=== PATIENT | female | born 1940 | race Caucasian/White ===

== ENCOUNTER 2022-02-07 16:28 | Emergency (ER) | payer BC ==
[2022-02-07 16:54] VITALS: TEMP 98.1; BMI 28.1
[2022-02-07] MEDS ORDERED: ACETAMINOPHEN 1000 MG/100 ML BAG IVPB ONE (18:51)
[2022-02-07] MEDS ORDERED: ACETAMINOPHEN INJECTION 100 ML IVPB ONE (18:58)
[2022-02-07 19:28] LABS: HEMATOCRIT 39.8 % (32.4-45.2); MCH 29.1 pg (25.7-33.7); MCHC 32.7 g/dl (32.0-36.0); MEAN CELL VOLUME 88.9 fl (80-96); MEAN PLT VOLUME 8.1 fl (7.5-11.1); PLATELET COUNT 398 10^3/uL (134-434); RBC 4.48 M/mm3 (3.60-5.2); RDW 14.3 % (11.6-15.6); WHITE BLOOD COUNT 10.2 K/mm3 (4.0-10.0)
[2022-02-07 19:45] LABS: INR 0.95 (0.83-1.09); PROTHROMBIN TIME (PATIENT) 10.9 SEC (9.7-13.0)
[2022-02-07 19:47] LABS: CHLORIDE 104 mmol/L (98-107); SODIUM 137 mmol/L (136-145)
[2022-02-07 19:50] LABS: ALBUMIN 3.8 g/dl (3.4-5.0); BLOOD UREA NITROGEN 13.5 mg/dL (7-18); CALCIUM 9.9 mg/dL (8.5-10.1); CO2 25 mmol/L (21-32); GLUCOSE,RANDOM 120 mg/dL (74-106)
[2022-02-07 19:53] LABS: CREATININE 0.8 mg/dL (0.55-1.3); SGOT/AST 62 U/L (15-37)
[2022-02-07 19:55] LABS: BILIRUBIN,TOTAL 1.4 mg/dL (0.2-1)
[2022-02-07 19:56] LABS: ALK PHOS 83 U/L (45-117)
[2022-02-07 20:19] LABS: ANION GAP 7 MMOL/L (8-16); SGPT/ALT 24 U/L (13-61)
[2022-02-08 00:11] LABS: BLOOD UREA NITROGEN 11.8 mg/dL (7-18); CALCIUM 9.6 mg/dL (8.5-10.1)
[2022-02-08 00:15] LABS: CREATININE 0.6 mg/dL (0.55-1.3)
[2022-02-08 00:37] VITALS: BP 152/86; PULSE 94
== END 2022-02-08 00:38 | disposition home or self-care (01) ==
LOC: JER 16:28
PROC: 3E0333Z Introduction of Anti-inflammatory into Peripheral Vein, Percutaneous Approach (ICD-10-PCS; principal; 2022-02-07)
DX: S09.90XA Unspecified injury of head, initial encounter (principal); W01.0XXA Fall on same level from slipping, tripping and stumbling without subsequent striking against object, initial encounter
CPT/HCPCS: 36415; 70450-TC; 71260-TC; 72125-TC; 72128-TC; 74177-TC; 80048; 80053; 85027; 85610; 99285-25; Q9967

== ENCOUNTER 2022-04-05 14:23 | Emergency (ER) | payer BC ==
[2022-04-05 14:44] VITALS: BP 125/63; PULSE 85; TEMP 97.7; BMI 30.8
[2022-04-05] MEDS ORDERED: FAMOTIDINE 20 MG/50 ML IVPB 20 MG/50 ML MG IVPB ONE ×2 (15:03→15:11)
[2022-04-05] MEDS ORDERED: methylPREDNISolone NA SUCC 125 MG/2 ML VIAL IVPUSH ONE (15:06)
[2022-04-05] MEDS ORDERED: methylPREDNISolone NA SUCC 125 MG/2 ML VIAL ONE (15:11)
[2022-04-05] MEDS ORDERED: SODIUM CHLORIDE 0.9% 500 ML INFUS.BAG IV ONE (18:20)
[2022-04-05] MEDS ORDERED: ONDANSETRON 4 MG/2 ML VIAL IVPUSH ONE (18:20)
[2022-04-05] MEDS ORDERED: ONDANSETRON 4 MG/2 ML VIAL ONE (18:30)
== END 2022-04-05 21:26 | disposition home or self-care (01) ==
LOC: JER 14:23
PROC: 3E033GC Introduction of Other Therapeutic Substance into Peripheral Vein, Percutaneous Approach (ICD-10-PCS; principal; 2022-04-05)
PROC: 3E033GC Introduction of Other Therapeutic Substance into Peripheral Vein, Percutaneous Approach (ICD-10-PCS; 2022-04-05)
PROC: 3E033GC Introduction of Other Therapeutic Substance into Peripheral Vein, Percutaneous Approach (ICD-10-PCS; 2022-04-05)
DX: T78.40XA Allergy, unspecified, initial encounter (principal)
CPT/HCPCS: 93005; 93010; 99284-25

== ENCOUNTER 2024-03-22 10:03 | Day surgery (SDC) | payer BC ==
[2024-03-22] MEDS: SODIUM CHLORIDE 250 ML IV ONE (10:40)
[2024-03-22] MEDS: PEMBROLIZUMAB 200 MG in SODIUM CHLORIDE 100 ML IV ONE (11:35)
[2024-03-22 13:40] VITALS: TEMP 98.3
[2024-03-22 13:46] VITALS: BP 144/68; PULSE 81; RESP 18
== END 2024-03-22 12:55 | disposition home or self-care (01) ==
LOC: JONCCHEMO 10:03 → J7W 10:04 → JONCCHEMO 12:55
PROVIDERS: ATTEND Internal Medicine Hematology & Oncology
DX: Z51.11 Encounter for antineoplastic chemotherapy (principal); C64.2 Malignant neoplasm of left kidney, except renal pelvis; C79.01 Secondary malignant neoplasm of right kidney and renal pelvis
CPT/HCPCS: J9271

== ENCOUNTER 2024-04-12 10:38 | Day surgery (SDC) | payer BC ==
[2024-04-12] MEDS: SODIUM CHLORIDE 250 ML IV ONE (11:44)
[2024-04-12] MEDS: MAGNESIUM OXIDE 400 MG TABLET (FP) PO ONE (11:47)
[2024-04-12] MEDS: LIDOCAINE 4% PATCH TP ONE (11:48)
[2024-04-12] MEDS: PEMBROLIZUMAB 200 MG in SODIUM CHLORIDE 100 ML IV ONE (12:49)
[2024-04-12 15:00] VITALS: RESP 20; TEMP 97.8
[2024-04-12 15:08] VITALS: BP 141/64; PULSE 88
[2024-04-12] MEDS ORDERED: LIDOCAINE PATCH REMOVAL MC SCH (22:00)
== END 2024-04-12 13:55 | disposition home or self-care (01) ==
LOC: JONCCHEMO 10:38 → J7W 10:39 → JONCCHEMO 13:55
PROVIDERS: ATTEND Internal Medicine Hematology & Oncology
DX: Z51.11 Encounter for antineoplastic chemotherapy (principal); C64.2 Malignant neoplasm of left kidney, except renal pelvis; C79.01 Secondary malignant neoplasm of right kidney and renal pelvis
CPT/HCPCS: 96413; J9271

== ENCOUNTER 2024-05-03 10:59 | Day surgery (SDC) | payer BC ==
[2024-05-03] MEDS: SODIUM CHLORIDE 250 ML IV ONE (11:40)
[2024-05-03] MEDS: PEMBROLIZUMAB 200 MG in SODIUM CHLORIDE 100 ML IV ONE (12:07)
[2024-05-03 15:50] VITALS: TEMP 98.2
[2024-05-03 15:54] VITALS: BP 145/83; PULSE 113; RESP 16
== END 2024-05-03 12:50 | disposition home or self-care (01) ==
LOC: JONCCHEMO 10:59 → J7W 11:00 → JONCCHEMO 12:50
PROVIDERS: ATTEND Internal Medicine Hematology & Oncology
DX: Z51.11 Encounter for antineoplastic chemotherapy (principal); C64.2 Malignant neoplasm of left kidney, except renal pelvis; C79.01 Secondary malignant neoplasm of right kidney and renal pelvis
CPT/HCPCS: 96413; J9271

== ENCOUNTER 2024-05-24 10:49 | Day surgery (SDC) | payer BC ==
[2024-05-24] MEDS: SODIUM CHLORIDE 250 ML IV ONE (11:29)
[2024-05-24] MEDS: PEMBROLIZUMAB 200 MG in SODIUM CHLORIDE 100 ML IV ONE (11:43)
[2024-05-24 13:54] LABS: PH,URINE 6.5 (5.0-8.0); URINE APPEARANCE CLEAR; URINE BILIRUBIN NEGATIVE (NEGATIVE); URINE COLOR YELLOW; URINE GLUCOSE (UA) NEGATIVE (NEGATIVE); URINE KETONE NEGATIVE (NEGATIVE); URINE LEUK ESTERASE NEGATIVE (NEGATIVE); URINE NITRITE NEGATIVE (NEGATIVE); URINE PROTEIN TRACE (NEGATIVE); URINE UROBILINOGEN 0.2 mg/dL (0.2-1.0)
[2024-05-24 16:25] VITALS: RESP 20; TEMP 98.6
[2024-05-24 16:33] VITALS: BP 153/73; PULSE 83
== END 2024-05-24 12:45 | disposition home or self-care (01) ==
LOC: JONCCHEMO 10:49 → J7W 10:50 → JONCCHEMO 12:45
PROVIDERS: ATTEND Internal Medicine Hematology & Oncology
DX: Z51.11 Encounter for antineoplastic chemotherapy (principal); C64.2 Malignant neoplasm of left kidney, except renal pelvis; C79.01 Secondary malignant neoplasm of right kidney and renal pelvis
CPT/HCPCS: 81003; 96413; J9271

== ENCOUNTER 2024-06-14 09:37 | Day surgery (SDC) | payer BC ==
[2024-06-14] MEDS: SODIUM CHLORIDE 250 ML IV ONE (10:10)
[2024-06-14] MEDS: MAGNESIUM SULFATE IN WATER 2 GM/50 ML IVPB IVPB ONE (10:25)
[2024-06-14] MEDS: PEMBROLIZUMAB 200 MG in SODIUM CHLORIDE 100 ML IV ONE (11:10)
[2024-06-14 16:06] VITALS: BP 154/84; PULSE 95; RESP 20; TEMP 98.4
== END 2024-06-14 12:05 | disposition home or self-care (01) ==
LOC: JONCCHEMO 09:37 → J7W 09:37 → JONCCHEMO 12:05
PROVIDERS: ATTEND Internal Medicine Hematology & Oncology
DX: Z51.11 Encounter for antineoplastic chemotherapy (principal); C64.2 Malignant neoplasm of left kidney, except renal pelvis; C79.9 Secondary malignant neoplasm of unspecified site
CPT/HCPCS: 96413; J9271

== ENCOUNTER 2024-07-06 11:19 | Day surgery (SDC) | payer BC ==
[2024-07-06] MEDS: SODIUM CHLORIDE 250 ML IV ONE (12:10)
[2024-07-06] MEDS: PEMBROLIZUMAB 200 MG in SODIUM CHLORIDE 100 ML IV ONE (13:01)
[2024-07-06 15:57] VITALS: RESP 20; TEMP 98
[2024-07-06 16:01] VITALS: BP 151/49; PULSE 93
== END 2024-07-06 13:45 | disposition home or self-care (01) ==
LOC: JONCCHEMO 11:19 → J7W 11:20 → JONCCHEMO 13:45
PROVIDERS: ATTEND Internal Medicine Hematology & Oncology
DX: Z51.11 Encounter for antineoplastic chemotherapy (principal); C64.2 Malignant neoplasm of left kidney, except renal pelvis; C79.9 Secondary malignant neoplasm of unspecified site
CPT/HCPCS: 96361; 96413; J9271

== ENCOUNTER 2024-07-27 11:48 | Day surgery (SDC) | payer BC ==
[2024-07-27] MEDS: SODIUM CHLORIDE 250 ML IV ONE (12:07)
[2024-07-27] MEDS: PEMBROLIZUMAB 200 MG in SODIUM CHLORIDE 100 ML IV ONE (13:11)
[2024-07-27 17:07] VITALS: TEMP 98
[2024-07-27 17:39] VITALS: BP 145/69; PULSE 76; RESP 18
== END 2024-07-27 14:00 | disposition home or self-care (01) ==
LOC: JONCCHEMO 11:48 → J7W 11:49 → JONCCHEMO 14:00
PROVIDERS: ATTEND Internal Medicine Hematology & Oncology
PROC: 3E03305 Introduction of Other Antineoplastic into Peripheral Vein, Percutaneous Approach (ICD-10-PCS; principal; 2024-07-27)
PROC: 3E0337Z Introduction of Electrolytic and Water Balance Substance into Peripheral Vein, Percutaneous Approach (ICD-10-PCS; 2024-07-27)
DX: Z51.11 Encounter for antineoplastic chemotherapy (principal); C64.2 Malignant neoplasm of left kidney, except renal pelvis; C79.9 Secondary malignant neoplasm of unspecified site
CPT/HCPCS: 96361; 96413; J9271

== ENCOUNTER 2024-08-17 11:40 | Day surgery (SDC) | payer BC ==
[2024-08-17] MEDS: SODIUM CHLORIDE 250 ML IV ONE (12:53)
[2024-08-17] MEDS: PEMBROLIZUMAB 200 MG in SODIUM CHLORIDE 100 ML IV ONE (13:55)
[2024-08-17 15:04] VITALS: PULSE 75; TEMP 97.7
[2024-08-17 15:05] VITALS: BP 137/63; RESP 16
== END 2024-08-17 14:45 | disposition home or self-care (01) ==
LOC: JONCCHEMO 11:40 → J7W 11:41 → JONCCHEMO 14:45
PROVIDERS: ATTEND Internal Medicine Hematology & Oncology
PROC: 3E03305 Introduction of Other Antineoplastic into Peripheral Vein, Percutaneous Approach (ICD-10-PCS; principal; 2024-08-17)
PROC: 3E0337Z Introduction of Electrolytic and Water Balance Substance into Peripheral Vein, Percutaneous Approach (ICD-10-PCS; 2024-08-17)
DX: Z51.11 Encounter for antineoplastic chemotherapy (principal); C64.2 Malignant neoplasm of left kidney, except renal pelvis
CPT/HCPCS: 96361; 96413; J9271

== ENCOUNTER 2024-09-14 11:16 | Day surgery (SDC) | payer BC ==
[~2024-09-14 11:16] MED LIST: PEMBROLIZUMAB 200 MG in SODIUM CHLORIDE 100 ML IV ONE; SODIUM CHLORIDE 250 ML IV ONE
[2024-09-14] MEDS: SODIUM CHLORIDE 250 ML IV ONE (12:00)
[2024-09-14 12:06] LABS: EPI CELLS 2 /uL (0-25.1); HYALINE CASTS 1 /uL (0-3.1); PH,URINE 5.5 (5.0-8.0); URINE APPEARANCE CLEAR; URINE BACTERIA 771 /uL (0-1359); URINE BILIRUBIN NEGATIVE (NEGATIVE); URINE COLOR YELLOW; URINE GLUCOSE (UA) NEGATIVE (NEGATIVE); URINE KETONE NEGATIVE (NEGATIVE); URINE LEUK ESTERASE TRACE (NEGATIVE); URINE NITRITE NEGATIVE (NEGATIVE); URINE PROTEIN TRACE (NEGATIVE); URINE RBC 14 /uL (0-23.9); URINE UROBILINOGEN 0.2 mg/dL (0.2-1.0); URINE WBC 121 /uL (0-25.8)
[2024-09-14] MEDS: PEMBROLIZUMAB 200 MG in SODIUM CHLORIDE 100 ML IV ONE (13:02)
[2024-09-14 14:30] VITALS: PULSE 76; RESP 20; TEMP 98.4
[2024-09-14 14:38] VITALS: BP 129/59
== END 2024-09-14 14:15 | disposition home or self-care (01) ==
LOC: JONCCHEMO 11:16 → J7W 11:29 → JONCCHEMO 14:15
PROVIDERS: ATTEND Internal Medicine Hematology & Oncology
DX: Z51.11 Encounter for antineoplastic chemotherapy (principal); C64.2 Malignant neoplasm of left kidney, except renal pelvis; C79.9 Secondary malignant neoplasm of unspecified site
CPT/HCPCS: 81003; 96413; J9271